=== PATIENT | female | born 1995 | race Caucasian/White ===

== ENCOUNTER 2018-05-31 14:05 | Outpatient (CLI) | payer MEDICAID ==
[2018-05-31 15:19] LABS: ADD UMIC YES; UR ASCORBIC ACID NEGATIVE (NEGATIVE); UR BACTERIA FEW /HPF (NONE SEEN); UR BILIRUBIN (Dip) NEGATIVE (NEGATIVE); UR BLOOD (Dip) NEGATIVE (NEGATIVE); UR CLARITY CLOUDY (CLEAR); UR COLOR YELLOW (YELLOW); UR GLUCOSE (Dip) NEGATIVE (NEGATIVE); UR KETONES (Dip) NEGATIVE (NEGATIVE); UR LEUKOCYTE ESTERASE (Dip) NEGATIVE Leu/ul (NEGATIVE); UR MUCUS FEW /HPF (NONE SEEN); UR NITRITE (Dip) NEGATIVE (NEGATIVE); UR RBC 0 /HPF (0-5); UR TOTAL PROTEIN (Dip) NEGATIVE (NEGATIVE); UR UROBILINOGEN (Dip) NEGATIVE (NEGATIVE); UR WBC 3 /HPF (0-5)
[2018-05-31] MEDS: ACETAMINOPHEN 500 MG TAB PO (17:04)
== END 2018-05-31 18:38 | disposition home or self-care (01) ==
LOC: OBT 14:05 → L-D 14:05 → OBT 18:38
DX: O46.8X2 Other antepartum hemorrhage, second trimester (principal); Z3A.27 27 weeks gestation of pregnancy
CPT/HCPCS: 76817; 76818; 81001

== ENCOUNTER 2018-08-15 23:14 | Inpatient (IN) | payer MEDICAID ==
[2018-08-16] MEDS ORDERED: OXYTOCIN 30 UNITS/LR 500 ML IV (00:30)
[2018-08-16] MEDS ORDERED: CARBOPROST 250 MCG INJ IM (00:30)
[2018-08-16] MEDS ORDERED: IBUPROFEN 600 MG TAB PO (00:30)
[2018-08-16] MEDS ORDERED: BUTORPHANOL 2 MG INJ IV (00:30)
[2018-08-16] MEDS ORDERED: MISOPROSTOL 200 MCG TAB PR (00:30)
[2018-08-16] MEDS ORDERED: AMPICILLIN 2 GM/NS (PMX) 100 ML IV (00:30)
[2018-08-16] MEDS ORDERED: METHYLERGONOVINE 0.2 MG INJ IM (00:30)
[2018-08-16 00:44] LABS: RUPTURE FETAL MEMBRANES NEGATIVE (NEGATIVE)
[2018-08-16 01:03] LABS: ADD UMIC YES; UR AMORPHOUS CRYSTAL FEW /HPF (NONE SEEN); UR ASCORBIC ACID NEGATIVE (NEGATIVE); UR BACTERIA FEW /HPF (NONE SEEN); UR BILIRUBIN (Dip) NEGATIVE (NEGATIVE); UR BLOOD (Dip) NEGATIVE (NEGATIVE); UR CLARITY SLIGHTLY CLOUDY (CLEAR); UR COLOR YELLOW (YELLOW); UR GLUCOSE (Dip) NEGATIVE (NEGATIVE); UR KETONES (Dip) NEGATIVE (NEGATIVE); UR LEUKOCYTE ESTERASE (Dip) TRACE Leu/ul (NEGATIVE); UR MUCUS FEW /HPF (NONE SEEN); UR NITRITE (Dip) NEGATIVE (NEGATIVE); UR RBC 0 /HPF (0-5); UR SPECIFIC GRAVITY (Dip) 1.017 (1.003-1.030); UR SQUAMOUS EPITHELIAL CELL FEW /HPF (FEW); UR TOTAL PROTEIN (Dip) NEGATIVE (NEGATIVE); UR UROBILINOGEN (Dip) NEGATIVE (NEGATIVE); UR WBC 6 /HPF (0-5)
[2018-08-16 01:06] LABS: ADD MAN DIFF? NO
[2018-08-16] MEDS: LACTATED RINGER'S 1,000 ML IV ×7 (01:06→23:27)
[2018-08-16 01:09] LABS: WHITE BLOOD COUNT 12.5 10^3/ul (4.8-10.8)
[2018-08-16 01:09] LABS: BASOPHILS % 0.2 % (0.0-2.0); EOSINOPHILS # 0.1 10^3/ul (0.0-0.5); HEMATOCRIT 29.1 % (37.0-47.0); HEMOGLOBIN 9.3 g/dl (12.0-16.0); LYMPHOCYTES # 3.5 10^3/ul (0.8-2.9); LYMPHOCYTES % 28.1 % (15.0-51.0); MEAN CORPUSCULAR VOLUME 84.3 fl (82.0-101.0); MEAN PLATELET VOLUME 11.3 fl (7.4-10.4); MONOCYTES % 8.1 % (0.0-11.0); NEUTROPHIL # 7.6 10^3/ul (1.6-7.5); NEUTROPHILS % 60.8 % (39.0-77.0); PLATELET COUNT 232 10^3/UL (140-415); RED BLOOD COUNT 3.45 10^6/ul (4.20-5.40); RED CELL DISTRIBUTION WIDTH 13.8 % (11.5-14.5)
[2018-08-16 01:11] LABS: AMPHETAMINE/METHAMPHETAMINE Negative (NEGATIVE); BARBITURATES Negative (NEGATIVE); BENZODIAZEPINES Negative (NEGATIVE); CANNABINOIDS Negative (NEGATIVE); COCAINE Negative (NEGATIVE)
[2018-08-16 01:12] LABS: OPIATES Positive (NEGATIVE)
[2018-08-16 01:29] LABS: INR 0.89; PROTIME 12.1 Sec (11.9-14.9); PT RATIO 0.9
[2018-08-16 01:30] LABS: PARTIAL THROMBOPLASTIN TIME 28.1 Sec (23.0-35.0)
[2018-08-16 01:59] LABS: HEPATITIS B SURFACE ANTIGEN NEGATIVE (NEGATIVE)
[2018-08-16] MEDS ORDERED: FENTAnyl 2MCG/ML-ROPIV 0.2% 100 ML (02:03)
[2018-08-16] MEDS ORDERED: DIPHENHYDRAMINE 50 MG INJ IV (02:30)
[2018-08-16] MEDS ORDERED: NALOXONE (0.4 MG/ML) INJ IV (02:30)
[2018-08-16] MEDS ORDERED: ACETAMINOPHEN 325 MG TAB PO (04:00)
[2018-08-16] MEDS: EPHEDrine SULFATE 50 MG/5 ML SYG IV ×4 (04:13→06:53)
[2018-08-16] MEDS: ACETAMINOPHEN 500 MG TAB PO (04:16)
[2018-08-16] MEDS ORDERED: AMPICILLIN 1 GM/NS (PMX) 50 ML IV (04:30)
[2018-08-16] MEDS: ONDANSETRON 4 MG INJ IV ×2 (05:19→23:27)
[2018-08-16] MEDS: FENTAnyl 2MCG/ML-ROPIV 0.2% 100 ML BAG EPI (10:32)
[2018-08-16] MEDS: PROMETHAZINE 25 MG TAB PO (19:30)
[2018-08-16] MEDS: MEPERIDINE 25 MG INJ IM (19:30)
[2018-08-16] MEDS: MEPERIDINE 25 MG INJ IV (19:30)
[2018-08-16 22:15] LABS: RUPTURE FETAL MEMBRANES NEGATIVE (NEGATIVE)
[2018-08-17] MEDS: FENTAnyl 2MCG/ML-ROPIV 0.2% 100 ML BAG EPI ×2 (00:29→08:11)
[2018-08-17] MEDS: MINERAL OIL LIGHT 10 ML VIAL TOP ×2 (00:48→09:47)
[2018-08-17] MEDS: LACTATED RINGER'S 1,000 ML IV (06:00)
[2018-08-17] MEDS: OXYTOCIN 30 UNITS/LR 500 ML IV ×2 (09:45→09:46)
[2018-08-17] MEDS: LIDOCAINE 1% (MPF) 30 ML INJ INJ (09:47)
[2018-08-17] MEDS ORDERED: OXYCODONE/ASPIRIN (4.88/325) TAB PO (11:00)
[2018-08-17] MEDS ORDERED: OXYTOCIN 30 UNITS/LR 500 ML IV (11:00)
[2018-08-17] MEDS ORDERED: MISOPROSTOL 200 MCG TAB PR (11:00)
[2018-08-17] MEDS ORDERED: CARBOPROST 250 MCG INJ IM (11:00)
[2018-08-17] MEDS ORDERED: ZOLPIDEM 5 MG TAB PO (11:00)
[2018-08-17] MEDS ORDERED: METHYLERGONOVINE 0.2 MG INJ IM (11:00)
[2018-08-17] MEDS: BENZOCAINE 20% 56 ML SPRAY TOP (11:40)
[2018-08-17] MEDS: IBUPROFEN 600 MG TAB PO ×2 (11:41→17:48)
[2018-08-17] MEDS: LANOLIN HPA 1 PKT TOP (11:41)
[2018-08-17] MEDS: WITCH HAZEL/GLYCERIN PAD PR (11:41)
[2018-08-17 13:57] LABS: RUBELLA ANTIBODY - IGG 1.74 index; RUBELLA ANTIBODY - IGM <20.00 AU/mL
[2018-08-17 16:22] LABS: RAPID PLASMA REAGIN NONREACTIVE (NR)
[2018-08-17] MEDS: SENNA/DOCUSATE NA (8.6MG/50MG) TAB PO (20:47)
[2018-08-17] MEDS: OXYCODONE/ASPIRIN (4.88/325) TAB PO (20:48)
[2018-08-18] MEDS: IBUPROFEN 600 MG TAB PO ×5 (00:15→21:52)
[2018-08-18 07:40] LABS: ADD MAN DIFF? NO
[2018-08-18 07:43] LABS: WHITE BLOOD COUNT 12.6 10^3/ul (4.8-10.8)
[2018-08-18 07:43] LABS: BASOPHILS % 0.3 % (0.0-2.0); EOSINOPHILS # 0.2 10^3/ul (0.0-0.5); EOSINOPHILS % 1.8 % (0.0-7.0); HEMATOCRIT 27.9 % (37.0-47.0); HEMOGLOBIN 9.1 g/dl (12.0-16.0); LYMPHOCYTES # 4.3 10^3/ul (0.8-2.9); LYMPHOCYTES % 33.8 % (15.0-51.0); MEAN CORPUSCULAR HEMOGLOBIN 27.2 pg (29.0-33.0); MEAN CORPUSCULAR HGB CONC 32.6 g/dl (32.0-37.0); MEAN CORPUSCULAR VOLUME 83.5 fl (82.0-101.0); MEAN PLATELET VOLUME 11.4 fl (7.4-10.4); MONOCYTE # 1.1 10^3/ul (0.3-0.9); NEUTROPHIL # 6.6 10^3/ul (1.6-7.5); NEUTROPHILS % 52.2 % (39.0-77.0); PLATELET COUNT 223 10^3/UL (140-415); RED BLOOD COUNT 3.34 10^6/ul (4.20-5.40); RED CELL DISTRIBUTION WIDTH 14.3 % (11.5-14.5)
[2018-08-18] MEDS: SENNA/DOCUSATE NA (8.6MG/50MG) TAB PO ×2 (09:29→21:52)
[2018-08-19] MEDS: IBUPROFEN 600 MG TAB PO (06:00)
[2018-08-19] MEDS: SENNA/DOCUSATE NA (8.6MG/50MG) TAB PO (09:00)
[2018-08-19] MEDS: DIPHTH/TET/ACEL PERTUSS (ADULT) 0.5 ML VIAL IM* (09:00)
== END 2018-08-19 12:25 | disposition home or self-care (01) | DRG 805 ==
LOC: OBT 23:14 → PP1 08-17 10:50 → L-D 08-16 00:03
PROC: 10E0XZZ Delivery of Products of Conception, External Approach (ICD-10-PCS; principal; 2018-08-17)
DX: O69.81X0 Labor and delivery complicated by cord around neck, without compression, not applicable or unspecified (principal); O60.14X0 Preterm labor third trimester with preterm delivery third trimester, not applicable or unspecified; Z37.0 Single live birth; Z87.51 Personal history of pre-term labor; Z3A.36 36 weeks gestation of pregnancy
CPT/HCPCS: 62319; 76815; 80307; 81001; 84112; 85025; 85610; 85730; 86592; 86762; 86850; 86900; 86901; 87340; 99464